=== PATIENT | female | born 1975 | race Caucasian/White ===

== ENCOUNTER 2023-03-03 21:48 | Inpatient (IN) | payer BC ==
[~2023-03-03] VITALS: Ht 160 cm; Wt 88.0 kg
[2023-03-03] MEDS ORDERED: ONDANSETRON 4 MG/2 ML VIAL IVP ONE (22:50)
[2023-03-03] MEDS ORDERED: NACL 0.9% 1,000 ML IV ONE (22:50)
[2023-03-03] MEDS ORDERED: MORPHINE SULFATE 4 MG/ML SYR IVP ONE (22:50)
--- NOTE | 2023-03-03 22:58 | NUR ---
PT TO 12
[2023-03-03 23:05] LABS: BASOPHILS # (AUTO) 0.1 K/uL (0.00-0.22); BASOPHILS % (AUTO) 0.7 % (0.0-2.0); EOSINOPHILS # (AUTO) 0.2 K/uL (0-0.4); EOSINOPHILS % (AUTO) 1.5 % (0.0-4.0); HEMATOCRIT 25.3 % (36-48); HEMOGLOBIN 8.1 g/dL (12.0-16.0); LYMPHOCYTES # (AUTO) 2.4 K/uL (2.5-16.5); LYMPHOCYTES % (AUTO) 23.4 % (20.5-51.1); MEAN CORPUSCULAR HEMOGLOBIN 23 pg (27-31); MEAN CORPUSCULAR HGB CONC 32 g/dL (33-37); MEAN CORPUSCULAR VOLUME 70.5 fL (80-94); MONOCYTES # (AUTO) 0.8 K/uL (0.8-1.0); MONOCYTES % (AUTO) 7.7 % (1.7-9.3); NEUTROPHILS # (AUTO) 6.8 K/uL (1.8-7.7); NEUTROPHILS % (AUTO) 66.7 % (42.2-75.2); PLATELET COUNT (AUTO) 451 K/uL (140-450); RED BLOOD CELL COUNT(AUTO) 3.59 MIL/uL (4.20-5.40); RED CELL DISTRIBUTION WIDTH 16.4 % (11.6-13.7); WHITE BLOOD COUNT (AUTO) 10.2 K/uL (4.8-10.8)
[2023-03-03 23:21] VITALS: BP 110/60
[2023-03-03 23:32] LABS: ALBUMIN 3.4 g/dL (3.4-5.0); CARBON DIOXIDE 26.8 mmol/L (21-32); CREATININE 0.8 mg/dL (0.6-1.3); POTASSIUM 3.8 mmol/L (3.5-5.1); TOTAL BILIRUBIN 0.2 mg/dL (0.0-1.0)
--- NOTE | 2023-03-03 23:42 | NUR ---
Patient resting in bed, A/Ox4, chest rise and fll symmetrical, no s/s of distress, on monitor.
--- NOTE | 2023-03-03 23:43 | NUR ---
ER physician at bedside speaking with patient.
[2023-03-04] VITALS (7 sets, daily range): BP systolic 111–135; BP diastolic 70–86
[2023-03-04] MEDS ORDERED: DICYCLOMINE HCL LIQUID 20 MG, ALUMINUM HYD/MAG/SIMETHICONE 30 ML, LIDOCAINE VISCOUS 2% ... PO ONE ×3 (00:05)
[2023-03-04] MEDS ORDERED: DICYCLOMINE HCL LIQUID 10 MG/5 ML UDC ONE (00:27)
[2023-03-04] MEDS ORDERED: ALUMINUM HYD/MAG/SIMETHICONE 30 ML UDC ONE (00:27)
[2023-03-04] MEDS ORDERED: DEXT 5% / NACL 0.9% 1,000 ML IV ONE (01:25)
[2023-03-04] MEDS ORDERED: MORPHINE SULFATE 4 MG/ML SYR IVP PRN (01:25)
[2023-03-04] MEDS ORDERED: MORPHINE SULFATE 4 MG/ML SYR IVP ONE (01:35)
[2023-03-04] MEDS ORDERED: NACL 0.9% 1,000 ML IV ONE (01:35)
--- NOTE | 2023-03-04 02:00 | NUR ---
Patient resting in bed, A/Ox4, chest rise and fll symmetrical, no s/s of distress, on monitor.
--- NOTE | 2023-03-04 03:32 | NUR ---
Patient will be admitted to care of Dr. Correa. Admited to [facility]. Will go to room 104B. Belongings list completed. Report to Andrés RICO. Andrés RN verbalized understanding of report, no further questions.
--- NOTE | 2023-03-04 03:45 | NUR ---
PT ARRIVED VIA GURNEY FROM ER. PT IS AAOX4. AMBULATORY. GAIT STEADY. ON RA SATING 98%. PT HAS RIGHT AC 20 GAUGE RUNNING D5 NS 100 CC/HR. PT DENIES ANY PAIN RIGHT NOW. EDUCATED PT FUNERAL PRE ARRANGEMENT COUNSELOR LIGHT SYSTEM. ROOM ENVIRONMENT. POC DISCUSSED. WILL CONTINUE TO MONITOR THE PT.
--- NOTE | 2023-03-04 07:32 | NUR ---
ENDORSED PT TO DAY SHIFT RN FOR CONTINUITY OF CARE. PT IS STABLE.
--- NOTE | 2023-03-04 08:28 | NUR ---
DR. GOMEZ MESSAGED STATING HE IS REFUSING TO SEE THE PT, AND TO TRANSFER THE PT HLOC FOR A FOREGUT SURGEON. NOTIFIED DR. BALDERAS, PRIMARY RN MENDOZA AND DIRECTOR OF EARLY CHILDHOOD DOROTEO.
--- NOTE | 2023-03-04 09:58 | NUR ---
Dr. GOMEZ wants patient to transfer to higher level for Foregut surgeon for complex hernia. Called [facility] and no Foregut surgeon available and recommend [facility] like [facility]. Contacted [facility] and will fax the transfer form to be filled out. continue to monitor.
[2023-03-04] MEDS ORDERED: ZOLPIDEM 5 MG TAB PO PRN (10:55)
[2023-03-04] MEDS ORDERED: DOCUSATE SODIUM 100 MG GELCAP PO PRN (10:55)
[2023-03-04] MEDS ORDERED: HYDROcodone/APAP 7.5/325 MG 1 TAB PO PRN (10:55)
[2023-03-04] MEDS ORDERED: POTASSIUM CHLORIDE 10 MEQ TABER PO PRN (10:55)
[2023-03-04] MEDS ORDERED: guaiFENesin DM 200/20 MG-10 ML 10 ML UDC PO PRN (10:55)
[2023-03-04] MEDS: ONDANSETRON 4 MG/2 ML VIAL IM/IVP PRN (11:49)
[2023-03-04 12:24] LABS: PROTHROMBIN TIME 10.3 secs (10.8-13.4)
[2023-03-04 12:39] LABS: CHOL/HDL RATIO 3.2 (1-4.5); FREE T4 (FREE THYROXINE) 0.88 ng/dL (0.76-1.46); MAGNESIUM 1.9 mg/dL (1.8-2.4); PHOSPHORUS 2.9 mg/dL (2.5-4.9); THYROID STIMULATING HORMONE 2.36 uIU/mL (0.34-3.74)
--- NOTE | 2023-03-04 13:45 | NUR ---
PT FOUND "KNOCK OUT" WITH SEIZURE FOR 20 SEC BY HER VISITING AT BEDSIDE THEN AWAKE,ALERT,VERBALIZED CLEAR SPEECH,PULSE 104,BP 135/86 O2 SAT 93%, CALLED AND NOTIFIED,GIVE ATIVAN 1MG ONCE PER DR ORDER ACETYLENE PLANT OPERATOR FOR GI CONSULT DR LEWIS NOTIFIED OF GI CONSULT CONTINUE NPO AND IVF INFUSION.
[2023-03-04] MEDS ORDERED: LORazepam 2 MG/ML VIAL IM/IVP SCH (13:52)
[2023-03-04] MEDS: PANTOPRAZOLE 40 MG INJ VIAL IVP SCH (14:03)
[2023-03-04] MEDS: ACETAMINOPHEN 325 MG TAB PO PRN ×2 (14:18→22:42)
--- NOTE | 2023-03-04 14:27 | NUR ---
Called [facility] transfer center and spoke to Quique, stated at Capacity at this moment but took all patient's information of the patient, he discussed the letter of agreement and faxed the letter of agreement between two hospitals and will call back when bed available.
--- NOTE | 2023-03-04 14:30 | NUR ---
PT SLEEPING WELL IN BED,PULSE 84,SAT 98% ON ROOM AIR HOURLY ROUNDS MADE,SAFETY MAINTAINED.
[2023-03-04] MEDS: DEXT 5% /NACL 0.9% 1,000 ML IV SCH ×2 (14:33→18:55)
--- NOTE | 2023-03-04 16:00 | NUR ---
VS REMAINS STABLE.PT CONTINUE RESTING IN BED, REQUESTED NEURO CONSULT.NO ORDER FOR NEURO CONSULT FOR NOW AND NEURO CHECK Q4 H PER DR ORDER. INFORMED AND MADE AWARED.
--- NOTE | 2023-03-04 19:30 | NUR ---
RECEIVED REPORT FROM DAY SHIFT RN FOR CONTINUITY OF CARE. PT IS CURRENTLY SLEEPING IN BED. NOT IN ANY RESPIRATORY DISTRESS. PT IS ON RA SATING 99%. IVF RUNNING PER MD ORDER. CALL LIGHT WITHIN REACH. WILL CONTINUE TO MONITOR THE PT.
--- NOTE | 2023-03-04 22:45 | NUR ---
PT COMPLAINED OF A FARMER. TYLENOL WAS GIVEN. NO OTHER COMPLAINS.
--- NOTE | 2023-03-05 00:10 | NUR ---
JEANETH SZYMANSKI CALLED FOR UPDATES FOR THE PT. UPDATE GIVEN. WANTED TO KNOW IF PT HAS BEEN REFERRED TO OTHER HOSPITAL AND SOME PT INFORMATION. ALL QUESTIONS ANSWERED. STILL WAITING ON CLEARANCE AND BED TO BE AVAILABLE. EARLIEST ACCEPTANCE IS MONDAY.
[2023-03-05] MEDS: DEXT 5% /NACL 0.9% 1,000 ML IV SCH ×2 (03:57→08:00)
[2023-03-05 04:00] VITALS: BP 122/67
--- NOTE | 2023-03-05 04:15 | NUR ---
VITAL SIGNS TAKEN AND STABLE. NO SIGNS OF SEIZURE NOTED THROUGHOUT SHIFT.
[2023-03-05 07:00] LABS: BASOPHILS % (AUTO) 0.4 % (0.0-2.0); EOSINOPHILS % (AUTO) 0.5 % (0.0-4.0); HEMATOCRIT 24.1 % (36-48); HEMOGLOBIN 7.6 g/dL (12.0-16.0); LYMPHOCYTES # (AUTO) 1.5 K/uL (2.5-16.5); LYMPHOCYTES % (AUTO) 15.4 % (20.5-51.1); MEAN CORPUSCULAR HEMOGLOBIN 22 pg (27-31); MEAN CORPUSCULAR HGB CONC 32 g/dL (33-37); MEAN CORPUSCULAR VOLUME 70.9 fL (80-94); MONOCYTES % (AUTO) 9.9 % (1.7-9.3); NEUTROPHILS # (AUTO) 7.3 K/uL (1.8-7.7); NEUTROPHILS % (AUTO) 73.8 % (42.2-75.2); PLATELET COUNT (AUTO) 397 K/uL (140-450); RED CELL DISTRIBUTION WIDTH 16.2 % (11.6-13.7)
[2023-03-05 07:05] LABS: ANION GAP 10.9 (8-16); CARBON DIOXIDE 28.4 mmol/L (21-32); CREATININE 0.7 mg/dL (0.6-1.3); POTASSIUM 3.3 mmol/L (3.5-5.1)
--- NOTE | 2023-03-05 07:22 | NUR ---
ENDORSED PT TO DAY SHIFT RN FOR CONTINUITY OF CARE. PT IS STABLE.
[2023-03-05] MEDS ORDERED: PANTOPRAZOLE 40 MG TABEC PO SCH (09:00)
--- NOTE | 2023-03-05 09:16 | NUR ---
PATIENT HAS BEEN SCREENED AND CATEGORIZED LOW NUTRITION RISK. PATIENT WILL BE SEEN WITHIN 7 DAYS OF ADMISSION. 03/11/[address]
[2023-03-05 09:27] LABS: WHITE BLOOD COUNT (AUTO) 9.9 K/uL (4.8-10.8)
[2023-03-05] MEDS: ONDANSETRON 4 MG/2 ML VIAL IM/IVP PRN (09:35)
[2023-03-05] MEDS: PANTOPRAZOLE 40 MG INJ VIAL IVP SCH (09:44)
[2023-03-05 12:07] LABS: T4 (THYROXINE) 5.8 ug/dL (4.5-12.0)
== END 2023-03-05 14:00 | disposition home or self-care (01) | DRG 395 ==
LOC: MED 21:48 → MTU 03-04 01:28
PROVIDERS: ADMIT Family Medicine; ATTEND Family Medicine
DX: K46.9 Unspecified abdominal hernia without obstruction or gangrene (principal); K44.9 Diaphragmatic hernia without obstruction or gangrene; D64.9 Anemia, unspecified; E86.0 Dehydration; Z20.822 Contact with and (suspected) exposure to COVID-19
CPT/HCPCS: 36415; 71045; 80048; 80053; 82150; 83036; 83690; 83735; 83880; 84100; 84436; 84439; 84443; 84479; 84484; 84703; 85025; 85610; 85730; 87081; 96361; 96374; 96375; 96376; 99285; C9113; J2060; J2270; J2405